=== PATIENT | female | born 1940 | race Caucasian/White ===

== ENCOUNTER → 2021-11-03 | Day surgery (SDC) | payer MEDICARE, OTHER ==
[2021-10-31 11:22] LABS: BASOPHILS % 0.5 % (0.0-1.0); EOSINOPHILS # (AUTO) 0.1 (0.0-0.4); EOSINOPHILS % 1.6 % (0.0-6.0); HEMATOCRIT 38.3 % (34.2-44.1); HEMOGLOBIN 11.6 g/dL (12.0-16.0); LYMPHOCYTES # (AUTO) 1.2 (1.0-3.2); LYMPHOCYTES % 16.3 % (18.0-39.1); MEAN CORPUSCULAR HEMOGLOBIN 28.4 pg (28-32); MEAN CORPUSCULAR HGB CONC 30.3 g/dL (31-35); MEAN CORPUSCULAR VOLUME 93.6 fL (81-99); MONOCYTES # (AUTO) 0.5 (0.2-0.8); MONOCYTES % 6.4 % (4.4-11.3); NEUTROPHILS # (AUTO) 5.5 (2.1-6.9); NEUTROPHILS % 74.9 % (38.7-80.0); PLATELET COUNT 278 x10e3/uL (140-360); RED BLOOD COUNT 4.09 x10e6/uL (3.6-5.1); RED CELL DISTRIBUTION WIDTH 14.2 % (11.7-14.4)
[2021-10-31 11:57] LABS: INR 0.9; PARTIAL THROMBOPLASTIN TIME 30.3 seconds (23.8-35.5)
[2021-10-31 11:58] LABS: ANION GAP 15.6 mmol/L (8-16); CALCIUM 9.7 mg/dL (8.4-10.2); CREATININE, SERUM 1.32 mg/dL (0.57-1.11); POTASSIUM 4.6 mmol/L (3.5-5.1)
[2021-11-03] VITALS (10 sets, daily range): BP systolic 139–171; BP diastolic 61–85
[~2021-11-03] VITALS: Ht 165.1 cm; Wt 120.2 kg
[~2021-11-03] MED LIST: ASPIRIN81 M2 PO; CRESTOR10 MG PO; FENTANYL CITRATE/PF 100MCG/2 ML INJ ONE; GENTAMICIN SULFATE 40 MG/ML 2 ML VIAL ONE; HUMULIN 70-30 V10 ML SQ; LEVEMIR 3M100 UNITS/ SQ; LIDOCAINE HCL 1% LOCAL INJ 20 ML VIAL ONE; LISINOPRIL5 MG PO; MIDAZOLAM HCL 2 MG/2 ML VIAL ONE; PACERONE200 MG PO; SODIUM CHLORIDE 0.9% 1000ML 1,000 ML ONE; Vancomycin IV 1 GM VIAL ONE; WARFARIN SODIUM5 MG PO; Z.0.CARVEDILOL12.5 M PO; Z.0.FUROSEMIDE40 MG PO; Z.0.GLIPIZIDE10 MG PO; Z.0.TRIAMTERENE-HC1 PO; [UNRECOGNIZED DRUG - OTHER] PO
== END | disposition home or self-care (01) ==
LOC: CATH LAB 08:38
PROVIDERS: ATTEND Internal Medicine Cardiovascular Disease
DX: I49.5 Sick sinus syndrome (principal); Z45.010 Encounter for checking and testing of cardiac pacemaker pulse generator [battery]; I44.2 Atrioventricular block, complete; I25.810 Atherosclerosis of coronary artery bypass graft(s) without angina pectoris; I48.91 Unspecified atrial fibrillation; I11.0 Hypertensive heart disease with heart failure; I50.9 Heart failure, unspecified; I25.2 Old myocardial infarction; E11.9 Type 2 diabetes mellitus without complications; J44.9 Chronic obstructive pulmonary disease, unspecified; E66.9 Obesity, unspecified; Z88.8 Allergy status to other drugs, medicaments and biological substances; Z88.6 Allergy status to analgesic agent; Z91.040 Latex allergy status; Z01.810 Encounter for preprocedural cardiovascular examination; Z01.818 Encounter for other preprocedural examination; Z79.4 Long term (current) use of insulin; Z79.01 Long term (current) use of anticoagulants; Z79.02 Long term (current) use of antithrombotics/antiplatelets; Z79.82 Long term (current) use of aspirin; Z79.899 Other long term (current) drug therapy; Z68.41 Body mass index [BMI] 40.0-44.9, adult; Z95.1 Presence of aortocoronary bypass graft; Z82.49 Family history of ischemic heart disease and other diseases of the circulatory system; Z83.3 Family history of diabetes mellitus
CPT/HCPCS: 33231; 36415; 71046; 80048; 85025; 85610; 85730; 93005; C1769; C2621; J2001; J2250; J3010; J3370; J7030; 33264; 99152; 99153; J1580